=== PATIENT | male | born 1955 | race Caucasian/White ===

== ENCOUNTER 2017-07-04 12:43 | Outpatient (CLI) | payer OTHER | END 2017-07-04 12:44 | disposition home or self-care (01) | LOC: DTY/OP 12:43 | PROVIDERS: ATTEND Physician Assistant | DX: E16.2 Hypoglycemia, unspecified (principal) | CPT/HCPCS: 97802 ==

== ENCOUNTER 2021-12-28 09:13 | Outpatient (CLI) | payer MEDICARE | END 2021-12-28 09:14 | disposition home or self-care (01) | LOC: NM 09:13 | PROVIDERS: ATTEND Urology | DX: C61 Malignant neoplasm of prostate (principal) | CPT/HCPCS: 78306; A9503 ==

== ENCOUNTER 2022-01-09 08:09 | Outpatient (CLI) | payer MEDICARE | END 2022-01-09 08:10 | disposition home or self-care (01) | LOC: TBSIIMAG 08:09 | PROVIDERS: ATTEND Urology | DX: C61 Malignant neoplasm of prostate (principal) | CPT/HCPCS: 72197 ==

== ENCOUNTER 2022-03-05 11:03 | Outpatient (CLI) | payer MEDICARE | END 2022-03-05 11:04 | disposition home or self-care (01) | LOC: LABBT 11:03 | PROVIDERS: ATTEND Urology | DX: Z01.812 Encounter for preprocedural laboratory examination (principal); C61 Malignant neoplasm of prostate; N18.30 Chronic kidney disease, stage 3 unspecified; G47.33 Obstructive sleep apnea (adult) (pediatric) | CPT/HCPCS: 80053; 81001; 85027; 85610; 85730; 86850; 86900; 86901; 87086 ==

== ENCOUNTER 2023-02-08 09:35 | Outpatient (CLI) | payer MEDICARE | END 2023-02-08 09:36 | disposition home or self-care (01) | LOC: BICMAMMO 09:35 | PROVIDERS: ATTEND Physician Assistant | DX: Z13.820 Encounter for screening for osteoporosis (principal); C61 Malignant neoplasm of prostate | CPT/HCPCS: 77080 ==

== ENCOUNTER 2023-02-20 17:00 | Outpatient (CLI) | payer MEDICARE | END 2023-02-20 17:01 | disposition home or self-care (01) | LOC: SLEEPLAB 17:00 | PROVIDERS: ATTEND Physician Assistant | DX: G47.33 Obstructive sleep apnea (adult) (pediatric) (principal); I25.10 Atherosclerotic heart disease of native coronary artery without angina pectoris; R06.83 Snoring; I10 Essential (primary) hypertension; R53.83 Other fatigue | CPT/HCPCS: 95810 ==